=== PATIENT | female | born 1945 | race Caucasian/White ===

== ENCOUNTER → 2016-10-22 | Outpatient (REF) | payer MEDICARE ==
[~2016-10-22] MED LIST: /TAMS4CA OR; ALBU17IN INH; ALBU83IN INH; ARMO180T PO; BRIN20TA PO; CALCTAB93 PO; CALCTAB97 PO; FISH1000 OR; FISH5CAP PO; GLUC1CAP9 PO; GUAI20TA PO; MELO15TA4 PO; MULTIVIT PO; OMEP20TA7 OR; OMEP40CA2 PO; PERC5TAB6 PO; PERC5TAB8 OR; PRED20TAB PO; PROZ20CA OR; SING10TA32 PO; SPIR1CAP INH; SYMB16INH INH; TRAZ100T OR; VIBR100C PO; VITA500019 PO; VITAMIN B 12 PO; [UNRECOGNIZED DRUG - OTHER] PO
== END ==
LOC: M SFHCLERA 10:27
PROVIDERS: ATTEND Physician Assistant
DX: R10.84 Generalized abdominal pain (principal)
CPT/HCPCS: 81002; 87086; G0463

== ENCOUNTER → 2016-12-11 | Outpatient (CLI) | payer MEDICARE ==
[~2016-12-11] MED LIST changes: +ISOVUE-370 76% 100ML VIAL (Q9967) As Ordered ONE
--- NOTE | 2016-12-11 21:16 | REP ---
CT CHEST WITH IV CONTRAST: CT chest is performed with IV contrast, with the intravenous administration of 100 mL of Isovue-370. Sagittal and coronal reconstruction images are performed. Comparison made with prior study of 08/20/2016. Comparison also made with other prior CT exams dating back to 2011. The previously noted tiny nodular density in the right upper lobe has remained stable since the 03/24/2012 CT of the chest and is therefore benign. Previously noted tiny nodular opacity in the left upper lobe and the other in the left lower lobe are also stable compared to prior exams dating back to 2011 and are therefore benign. No new nodules are seen. No infiltrates are seen. No adenopathy is seen in the chest. There are mild atherosclerotic calcifications of the thoracic aorta without aneurysm. The heart is normal in size. There is no pleural or pericardial effusion. There is a hiatal hernia. There is evidence of a cholecystectomy. The patient appears to have had prior gastric bypass surgery. IMPRESSION: Stable CT findings. The tiny nodule in the right lung and the two tiny nodules in the left lung have remained stable since 2011 and are benign. Signed by Ken Silva MD 12/12/2016 07:57 P
== END ==
LOC: M RAD 18:37
PROVIDERS: ATTEND Family Medicine
DX: R91.1 Solitary pulmonary nodule (principal)
CPT/HCPCS: 71260; Q9967

== ENCOUNTER → 2018-03-24 | Outpatient (CLI) | payer MEDICARE ==
[2018-03-24 17:52] LABS: BASO # 0.1 10^3/uL (0.0-0.2); BASO % 0.9 % (0.0-1.0); EOS # 0.4 10^3/uL (0.0-0.50); EOS % 5.8 % (0.0-3.0); HEMATOCRIT 40.3 % (36.0-47.0); HEMOGLOBIN 12.9 g/dl (12.0-15.5); IMMATURE GRANULOCYTE % 0.9 % (0-3.0); LYMPH # 1.8 10^3/uL (1.5-4.5); LYMPH % 26.6 % (24.0-44.0); MEAN CORPUSCULAR HEMOGLOBIN 29.7 pg (27.0-33.0); MEAN CORPUSCULAR VOLUME 92.6 fl (80.0-96.0); MONO # 0.5 10^3/uL (0.0-0.8); MONO % 7.3 % (0.0-5.0); NEUTROPHILS % 58.5 % (36.0-66.0); PLATELET COUNT, AUTOMATED 208 10^3/uL (150-450); RED BLOOD COUNT 4.35 10^6/uL (4.00-5.40); RED CELL DISTRIBUTION WIDTH 13.2 % (11.5-14.5); WHITE BLOOD COUNT 6.9 10^3/uL (4.0-10.0)
[2018-03-24 17:58] LABS: ALBUMIN 3.4 GM/DL (3.2-5.2); ALBUMIN/GLOBULIN RATIO 1.13 (1.00-1.93); ALKALINE PHOSPHATASE 85 U/L (45-117); ALT/SGPT 19 U/L (12-78); ANION GAP 8 MEQ/L (8-16); AST/SGOT 19 U/L (7-37); BILIRUBIN,TOTAL 0.7 MG/DL (0.2-1.0); BLOOD UREA NITROGEN 14 MG/DL (7-18); CARBON DIOXIDE LEVEL 27 MEQ/L (21-32); CHLORIDE LEVEL 106 MEQ/L (98-107); CREATININE FOR GFR 0.56 MG/DL (0.55-1.30); FREE T4 0.44 NG/DL (0.76-1.46); GLOMERULAR FILTRATION RATE > 60.0 (>39); GLUCOSE, FASTING 73 MG/DL (70-100); MAGNESIUM LEVEL 1.9 MG/DL (1.8-2.4); POTASSIUM SERUM 4.5 MEQ/L (3.5-5.1); SODIUM LEVEL 141 MEQ/L (136-145); TOTAL PROTEIN 6.4 GM/DL (6.4-8.2)
== END ==
LOC: M SMT 15:47
DX: I49.9 Cardiac arrhythmia, unspecified (principal)
CPT/HCPCS: 83735

== ENCOUNTER 2018-10-18 07:32 | Emergency (ER) | payer MEDICARE ==
[~2018-10-18] VITALS: Ht 157.5 cm; Wt 90.9 kg
[~2018-10-18 07:32] MED LIST changes: -ISOVUE-370 76% 100ML VIAL (Q9967) As Ordered ONE; +MELO15TA28 PO; -MELO15TA4 PO; +PERC5TAB12 PO; -PERC5TAB6 PO
[2018-10-18] MEDS ORDERED: LEVO175T19 PO (07:42)
[2018-10-18] MEDS ORDERED: BRIN1TAB3 PO (07:42)
[2018-10-18] MEDS ORDERED: ALBUTEROL SULFATE 2.5 MG/0.5 ML INH NEB SOLN INH ONE (08:00)
[2018-10-18] MEDS ORDERED: NS 1,000 ML IV ONE (08:15)
[2018-10-18] MEDS ORDERED: KETOROLAC 30 MG/ML VIAL (J1885) IV ONE (08:45)
[2018-10-18] MEDS ORDERED: TRIMETHOBENZAMIDE HCL INJ 200 MG/2 ML VIAL (J3250) IM ONE (08:45)
[2018-10-18 08:51] LABS: BASO # 0.1 10^3/uL (0.0-0.2); BASO % 0.5 % (0.0-1.0); EOS # 0.2 10^3/uL (0.0-0.50); EOS % 1.5 % (0.0-3.0); HEMATOCRIT 37.3 % (36.0-47.0); HEMOGLOBIN 12.1 g/dl (12.0-15.5); LYMPH % 8.3 % (24.0-44.0); MEAN CORPUSCULAR HEMOGLOBIN 28.3 pg (27.0-33.0); MEAN CORPUSCULAR HGB CONC 32.4 g/dl (32.0-36.5); MEAN CORPUSCULAR VOLUME 87.4 fl (80.0-96.0); MONO # 0.7 10^3/uL (0.0-0.8); MONO % 5.6 % (0.0-5.0); NEUTROPHILS # 9.8 10^3/uL (1.8-7.7); NEUTROPHILS % 83.7 % (36.0-66.0); PLATELET COUNT, AUTOMATED 186 10^3/uL (150-450); RED BLOOD COUNT 4.27 10^6/uL (4.00-5.40); WHITE BLOOD COUNT 11.7 10^3/uL (4.0-10.0)
[2018-10-18] MEDS ORDERED: cefTRIAXone SOD 1 GM in D5W MINI-BAG PLUS 50 ML IV ONE (09:00)
--- NOTE | 2018-10-18 09:07 | REP ---
CHEST X-RAY: Two views. HISTORY: Cough. Hemoptysis. Reported aspiration. Comparison chest x-ray: March 24, 2016. FINDINGS: There is a new alveolar opacity in the left mid lung field consistent with pneumonia. This is not well seen on the lateral radiograph but is probably in the upper lobe distribution. Lung pierce are otherwise clear. Heart is not enlarged. The aorta is tortuous as before. There is evidence of a hiatal hernia behind the heart. Right hemidiaphragm remains slightly elevated. IMPRESSION: New infiltrate left upper lobe consistent with pneumonia. Hiatal hernia. Otherwise no acute disease. Electronically Signed by Zeke Kent MD 10/18/2018 09:19 A
[2018-10-18 09:13] LABS: INR 0.96; PROTHROMBIN TIME 12.8 SECONDS (12.1-14.4)
[2018-10-18 09:21] LABS: BLOOD UREA NITROGEN 13 MG/DL (7-18); CALCIUM LEVEL 8.9 MG/DL (8.8-10.2); CARBON DIOXIDE LEVEL 22 MEQ/L (21-32); CHLORIDE LEVEL 106 MEQ/L (98-107); CREATININE FOR GFR 0.62 MG/DL (0.55-1.30); GLOMERULAR FILTRATION RATE > 60.0 (>39); GLUCOSE, FASTING 86 MG/DL (70-100); SODIUM LEVEL 139 MEQ/L (136-145)
[2018-10-18] MEDS ORDERED: metroNIDAZOLE (FLAGYL) 500 MG TAB PO ONE (10:00)
[2018-10-18] MEDS ORDERED: CEFD300CAP PO (10:27)
[2018-10-18] MEDS ORDERED: FLAG500T PO (10:27)
[2018-10-18 10:28] VITALS: BP 127/69
== END 2018-10-18 10:38 | disposition home or self-care (01) ==
LOC: M ED 07:32
DX: J18.1 Lobar pneumonia, unspecified organism (principal); R11.0 Nausea; Z87.891 Personal history of nicotine dependence; Z88.1 Allergy status to other antibiotic agents; Z88.8 Allergy status to other drugs, medicaments and biological substances; Z88.0 Allergy status to penicillin; Z79.899 Other long term (current) drug therapy; Z79.51 Long term (current) use of inhaled steroids
CPT/HCPCS: 71046; 80048; 85025; 85610; 85730; 94640; 96365; 96372; 96375; 99284; J0696; J1885; J3250

== ENCOUNTER → 2019-08-02 | Outpatient (REF) | payer MEDICARE ==
[~2019-08-02] MED LIST changes: -/TAMS4CA OR; +BRIN1TAB3 PO; +CEFD300CAP PO; +FLAG500T PO; +FLOM0.4C39 OR; +LEVO175T19 PO; -OMEP40CA2 PO; +OMEP40CA97 PO
== END ==
LOC: M LAB REF 17:10
PROVIDERS: ATTEND Pediatrics
DX: R30.0 Dysuria (principal)

== ENCOUNTER → 2019-12-11 | Outpatient (CLI) | payer MEDICARE ==
[~2019-12-11] MED LIST changes: +E-Z-GAS II EFFERVESCENT PACKET (SODIUM BICARB./CITRIC ACID/SIMETHICONE) As Ordered ONE; +E-Z-HD 98% w/w 340GM SUSP BTL As Ordered ONE; +E-Z-PAQUE 96% w/w SUSP 176GM BTL As Ordered ONE
--- NOTE | 2019-12-11 11:26 | REP ---
RIGHT UPPER QUADRANT ULTRASOUND: Real-time sonographic evaluation of right upper quadrant is performed. The patient has had a prior cholecystectomy. There is no intrahepatic or extrahepatic biliary dilatation, common bile duct measuring 6 mm. Echotexture of the liver is somewhat heterogeneous. No liver or pancreatic mass is visualized. Pancreas is not optimally seen due to overlying bowel gas. Right kidney demonstrates no hydronephrosis with normal size 10.3 cm in length. There is no free fluid. IMPRESSION: Essentially negative right upper quadrant ultrasound status post cholecystectomy. Electronically Signed by Ken Silva MD 12/11/2019 01:34 P
--- NOTE | 2019-12-11 20:13 | REP ---
Examination Requested: Upper G.I. Series With KUB Reason For Exam: Nausea, esophageal varices Upper GI Air Contrast The procedure was performed by FLIP Enamorado, under the direct supervision of Dr. Kent. The images were reviewed with Dr. Kent. The waist cutter film shows no organomegaly or pathological masses. The intestinal gas pattern appears normal. Liquid barium was given in the erect position as well as liquid barium in the prone oblique position in order to perform a single contrast upper GI examination. The oral and pharyngeal stages of deglutition demonstrated hyperplasia of the cricopharyngeal muscle. Esophageal transport is efficient and there is no esophagitis, stricture, or mucosal ring noted. However feline esophagus was visualized throughout the exam. There there is a sliding hiatal hernia with the gastric anastomosis above the diaphragm . Gastroesophageal reflux is visualized to the level of the tyrel. The stomach demonstrates postsurgical changes consistent with the patient's history of gastric bypass. There is free flow of contrast through the anastomosis. There is no evidence of stricture or obstruction. There is no evidence of gastritis, neoplasm, or ulcer disease. The visualized portion of the proximal small bowel appears normal in course and caliber. Impression: 1. Sliding hiatal hernia with the gastric anastomosis located above the diaphragm. 2. Feline esophagus. 3. Gastroesophageal reflux to the level of the tyrel. 4. Cricopharyngeal hyperplasia. 0.3 minutes of fluoroscopy time was utilized for this procedure. Some fluoroscopic images are performed with last image hold technology. These images require no additional radiation. Reviewed by FLIP Rivas 12/11/2019 04:31 P Electronically Signed by Zeke Kent MD 12/11/2019 08:03 P
== END ==
LOC: M RAD 09:42
PROVIDERS: ATTEND Internal Medicine Gastroenterology
DX: R68.81 Early satiety (principal); I85.00 Esophageal varices without bleeding; R11.0 Nausea; K44.9 Diaphragmatic hernia without obstruction or gangrene

== ENCOUNTER → 2021-01-28 | Outpatient (REF) | payer MEDICARE ==
[~2021-01-28] MED LIST changes: -E-Z-GAS II EFFERVESCENT PACKET (SODIUM BICARB./CITRIC ACID/SIMETHICONE) As Ordered ONE; -E-Z-HD 98% w/w 340GM SUSP BTL As Ordered ONE; -E-Z-PAQUE 96% w/w SUSP 176GM BTL As Ordered ONE
== END ==
LOC: M LAB REF 17:21
PROVIDERS: ATTEND Physician Assistant
DX: J20.9 Acute bronchitis, unspecified (principal)

== ENCOUNTER → 2021-05-29 | Outpatient (REF) | payer MEDICARE ==
[~2021-05-29] MED LIST changes: +OMEP40CA4 PO; -OMEP40CA97 PO
== END ==
LOC: M LAB REF 18:40
PROVIDERS: ATTEND Physician Assistant
DX: R51.9 Headache, unspecified (principal)

== ENCOUNTER → 2023-06-18 | Outpatient (CLI) | payer MEDICARE ==
[~2023-06-18] MED LIST changes: +ALBU2.5V10 INH; -ALBU83IN INH; +MONT-5 PO; -SING10TA32 PO
== END ==
LOC: M PLAIMG 15:11
PROVIDERS: ATTEND Internal Medicine
DX: R51.9 Headache, unspecified (principal); M54.2 Cervicalgia